=== PATIENT | female | born 1995 | race Caucasian/White ===

== ENCOUNTER 2017-03-27 19:03 | Emergency (ER) | payer BC ==
[~2017-03-27] VITALS: Ht 165.1 cm; Wt 58.0 kg
[~2017-03-27 19:03] MED LIST: PREDNISONE20 MG PO; PROVENTIL,2.5 MG/3 M IH
[2017-03-27 19:10] VITALS: BP 131/82
[2017-03-27] MEDS ORDERED: PREDNISONE20 MG PO (20:57)
[2017-03-27] MEDS ORDERED: ZITHROMAX250 MG PO (20:57)
[2017-03-27] MEDS ORDERED: ROBITUSSIN AC,T10 ML PO (20:57)
== END 2017-03-27 21:17 | disposition home or self-care (01) ==
LOC: EME 19:03
DX: J40 Bronchitis, not specified as acute or chronic (principal); J32.9 Chronic sinusitis, unspecified; R06.02 Shortness of breath; J45.909 Unspecified asthma, uncomplicated
CPT/HCPCS: 71020; 99281; 99284; J7512

== ENCOUNTER 2017-11-18 18:39 | Emergency (ER) | payer BC ==
[~2017-11-18] VITALS: Ht 165.1 cm; Wt 58.5 kg
[~2017-11-18 18:39] MED LIST changes: +ROBITUSSIN AC,T10 ML PO; +ZITHROMAX250 MG PO
[2017-11-18 19:35] LABS: HEMATOCRIT 39.8 % (36.0-46.0); MCHC 34.2 G/DL (30.0-36.0); MCV 84.9 FL (83-99); MEAN PLAT.VOLUME 10.7 uM^3 (9.5-12.4); PLATELET COUNT 279 K/uL (156-360); RBC DIS.WIDTH-CV 12.6 % (11.8-14.6); RBC DIS.WIDTH-SD 38.3 % (39-53); RED BLOOD COUNT 4.69 M/uL (3.80-5.20); WHITE BLOOD COUNT 14.4 K/uL (4.1-10.2)
[2017-11-18 19:54] LABS: CHLORIDE 102 mEq/L (99-109); POTASSIUM 4.5 mEq/L (3.7-5.4); SODIUM 139 mEq/L (136-147)
[2017-11-18 19:56] LABS: GLUCOSE 88 mg/dL (70-99); QUANTITATIVE HCG < 4.0 MIU/ML
[2017-11-18 19:57] LABS: ANION GAP 12 MEQ/L (2-14)
[2017-11-18 20:00] LABS: GFR ESTIMATE (CALCULATED) > 59 mL/min/
[2017-11-18 20:01] LABS: UREA NITROGEN (BUN) 8 mg/dL (9-23)
[2017-11-18] MEDS ORDERED: LEVAQUIN500 MG PO (20:07)
[2017-11-18] MEDS ORDERED: NAPROXEN500 MG PO (20:07)
[2017-11-18 20:42] VITALS: BP 146/83
== END 2017-11-18 20:47 | disposition home or self-care (01) ==
LOC: EME 18:39
PROVIDERS: Physician Assistant
DX: R09.1 Pleurisy (principal); J20.9 Acute bronchitis, unspecified; J45.909 Unspecified asthma, uncomplicated; Z88.0 Allergy status to penicillin
CPT/HCPCS: 71020; 80048; 84702; 85027; 99281; 99284; J8540

== ENCOUNTER 2017-11-19 16:42 | Emergency (ER) | payer BC ==
[~2017-11-19] VITALS: Ht 165.1 cm; Wt 57.6 kg
[~2017-11-19 16:42] MED LIST changes: +LEVAQUIN500 MG PO; +NAPROXEN500 MG PO
[2017-11-19 23:03] LABS: MCHC 34.1 G/DL (30.0-36.0); RBC DIS.WIDTH-CV 12.7 % (11.8-14.6); RBC DIS.WIDTH-SD 38.7 % (39-53); RED BLOOD COUNT 4.59 M/uL (3.80-5.20); WHITE BLOOD COUNT 15.2 K/uL (4.1-10.2)
[2017-11-19 23:11] LABS: CHLORIDE 105 mEq/L (99-109); POTASSIUM 3.9 mEq/L (3.7-5.4); SODIUM 138 mEq/L (136-147)
[2017-11-19 23:13] LABS: GLUCOSE 98 mg/dL (70-99)
[2017-11-19 23:14] LABS: ANION GAP 10 MEQ/L (2-14)
[2017-11-19 23:16] LABS: SERUM ETHYL ALCOHOL < 10 mg/dL
[2017-11-19 23:17] LABS: GFR ESTIMATE (CALCULATED) > 59 mL/min/
[2017-11-19 23:18] LABS: UREA NITROGEN (BUN) 15 mg/dL (9-23)
[2017-11-19 23:21] LABS: ADD MIUA? YES; BILIRUBIN NEGATIVE; BLOOD NEGATIVE; COLOR YELLOW ((YELLOW)); GLUCOSE (STRIP) NEGATIVE; KETONES NEGATIVE; LEUKOCYTES NEGATIVE; NITRITE NEGATIVE; PROTEIN (STRIP) NEGATIVE; SPECIFIC GRAVITY 1.031 (1.000-1.030); UROBILINOGEN 0.2 MG/DL (0.2-1.0)
[2017-11-19 23:26] LABS: QUANTITATIVE HCG < 4.0 MIU/ML
[2017-11-19 23:38] LABS: MEAN PLAT.VOLUME 11.4 uM^3 (9.5-12.4); PLAT.SUFFICIENCY ADEQUATE
[2017-11-19 23:44] LABS: PLATELET COUNT 166 K/uL (156-360)
[2017-11-19 23:48] LABS: BACTERIA 2+ /HPF; CALCIUM OXALATE CRYSTALS 4+ /HPF; EPITHELIAL CELLS RARE /HPF; MUCUS 4+ /LPF; RED BLOOD CELLS NONE SEEN /HPF (0-5); UCUL ADDED? YES; WHITE BLOOD CELLS 0-5 /HPF (0-5)
[2017-11-20 00:10] LABS: AMPHETAMINE NEGATIVE (500 ng/mL); BARBITURATES NEGATIVE (200 ng/mL); BENZODIAZEPINES NEGATIVE (150 ng/mL); COCAINE NEGATIVE (150 ng/mL); INTERNAL CONTROLS VALID? YES; METHADONE NEGATIVE (200 ng/mL); METHAMPHETAMINE NEGATIVE (500 ng/mL); OPIATES (MORPHINE) NEGATIVE (100 ng/mL); OXYCODONE NEGATIVE (100 ng/mL); PHENCYCLIDINE NEGATIVE (25 ng/mL); PROPOXYPHENE NEGATIVE (300 ng/mL); THC CANNABINOIDS NEGATIVE (50 ng/mL); TRICYCLIC ANTIDEPRESSANTS NEGATIVE (300 ng/mL)
[2017-11-20 01:45] VITALS: BP 118/72
== END 2017-11-20 01:46 | disposition home or self-care (01) ==
LOC: EME 16:42
PROVIDERS: Emergency Medicine
DX: F32.9 Major depressive disorder, single episode, unspecified (principal); R07.89 Other chest pain; J20.9 Acute bronchitis, unspecified; J45.909 Unspecified asthma, uncomplicated; Z88.0 Allergy status to penicillin
CPT/HCPCS: 80048; 81003; 84702; 85027; 85379; 87086; 90839; 93005; 99281; 99285; G0480; Q0177